=== PATIENT | female | born 1990 | race African-American/Black ===

== ENCOUNTER 2017-11-07 14:54 | Emergency (ER) | payer OTHER ==
[~2017-11-07] VITALS: Ht 157.5 cm; Wt 45.4 kg
[2017-11-07 15:07] VITALS: BP 101/55
[2017-11-07] MEDS ORDERED: MOTRIN600 MG PO (16:18)
== END 2017-11-07 16:30 | disposition home or self-care (01) ==
LOC: EME 14:54
PROC: 2W3QX1Z Immobilization of Right Lower Leg using Splint (ICD-10-PCS; principal; 2017-11-07)
DX: S92.354A Nondisplaced fracture of fifth metatarsal bone, right foot, initial encounter for closed fracture (principal); X50.9XXA Other and unspecified overexertion or strenuous movements or postures, initial encounter; Y93.02 Activity, running; Y92.008 Other place in unspecified non-institutional (private) residence as the place of occurrence of the external cause
CPT/HCPCS: 73630; 99281; 99284